=== PATIENT | male | born 1990 | race African-American/Black ===

== ENCOUNTER → 2021-09-22 | Outpatient (CLI) | payer BC ==
[2021-09-23 13:58] LABS: T4/T8 Ratio (CD4:CD8) 0.8 (1.0-3.7)
== END | disposition home or self-care (01) ==
LOC: LABWHC1 13:10
PROVIDERS: ATTEND Internal Medicine
DX: B20 Human immunodeficiency virus [HIV] disease (principal)
CPT/HCPCS: 36415; 86355; 86357; 86359; 86360; 87536

== ENCOUNTER → 2022-01-31 | Outpatient (CLI) | payer BC, OTHER ==
[2022-01-31 23:59] LABS: Basophils # (A) 0.04 X 10*3/uL (0.00-0.10); Basophils % (A) 0.8 %; Eosinophils # (A) 0.12 X 10*3/uL (0.04-0.35); Eosinophils % (A) 2.4 %; HCT 41.1 % (39.6-50.0); HGB 13.6 g/dL (13.0-17.0); Immature Grans, Automated 0.2 %; Lymphocytes # (A) 2.69 X 10*3/uL (0.90-5.00); Lymphocytes % (A) 53.3 %; MCH 30.8 pg (27.0-32.0); MCHC 33.1 g/dL (32.0-37.0); MCV 93.2 fL (80.0-97.0); Mean Platelet Volume 9.1 fL (9.5-12.2); Monocytes # (A) 0.39 X 10*3/uL (0.20-1.00); Monocytes % (A) 7.7 %; NRBC Per 100 WBC 0 /100 WBCS (0.0-0.0); Neutrophils % (A) 35.6 %; Platelet Count 411 X 10*3/uL (140-440); RBC 4.41 X 10*6/uL (4.40-5.60); RDW 12.6 % (11.5-14.5); Reticulocyte % 0.94 % (0.10-1.80); WBC 5.05 X 10*3/uL (4.50-10.00)
[2022-02-01 01:06] LABS: % Iron Saturation 15.85 (15.00-50.00); ALT 29 U/L (10-49); AST 28 U/L (14-35); African American GFR (CKD) 97.7 (60.0-200.0); Albumin 4.9 g/dL (3.8-4.9); Albumin/Globulin Ratio 1.73 (1.60-3.17); Alkaline Phosphatase 75 U/L (41-126); BUN/Creat Ratio 10.61 Ratio (12.00-20.00); Blood Urea Nitrogen 12.2 mg/dL (9.0-27.0); Calcium 9.9 mg/dL (8.7-10.3); Carbon Dioxide 25.1 mmol/L (20.0-27.5); Chloride 99 mmol/L (96-109); Chol/HDL Ratio 4.06 Ratio; Creatine Kinase 186 U/L (35-257); Globulin 2.8 g/dL (1.6-3.3); Glucose 80 mg/dL (70-110); Iron 66 ug/dL (65-175); LDL Cholesterol,Calculated 181.3 mg/dL (0.0-131.0); Non-African American GFR(CKD) 84.3 (60.0-200.0); Potassium 4.2 mmol/L (3.5-5.5); Sodium 138 mmol/L (135-145); Total Iron Binding Capacity 414 ug/dL (228-460); Total Protein 7.7 g/dL (6.2-8.2)
[2022-02-01 01:48] LABS: Progesterone 0.1 ng/mL
[2022-02-01 14:23] LABS: HIV-1 RNA Not detected (Not detected); HIV-1 RNA, Quant <40 Copies/mL (<40); LOG HIV Copies/mL <1.60 (<1.60)
== END | disposition home or self-care (01) ==
LOC: LABWHC1 14:24
PROVIDERS: ATTEND Psychiatry & Neurology Neurology
DX: Z00.01 Encounter for general adult medical examination with abnormal findings (principal); Z13.1 Encounter for screening for diabetes mellitus; Z51.81 Encounter for therapeutic drug level monitoring; B20 Human immunodeficiency virus [HIV] disease; R53.83 Other fatigue
CPT/HCPCS: 36415; 80053; 80061; 82306; 82533; 82550; 82607; 82626; 82746; 83036; 83540; 83550; 83605; 84144; 84207; 84402; 84403; 84425; 84439; 84443; 84466; 84591; 85025; 85045; 86355; 86357; 86359; 86360; 87536

== ENCOUNTER → 2022-03-29 | Outpatient (CLI) | payer BC, OTHER ==
[2022-03-30 12:44] LABS: T4/T8 Ratio (CD4:CD8) 0.9 (1.0-3.7)
[2022-03-30 15:09] LABS: HIV-1 RNA Not detected (Not detected); HIV-1 RNA, Quant <40 Copies/mL (<40); LOG HIV Copies/mL <1.60 (<1.60)
== END | disposition home or self-care (01) ==
LOC: LABWHC1 14:15
PROVIDERS: ATTEND Internal Medicine
DX: B20 Human immunodeficiency virus [HIV] disease (principal)
CPT/HCPCS: 36415; 86355; 86357; 86359; 86360; 87536

== ENCOUNTER 2022-05-12 11:53 | Day surgery (SDC) | payer BC, OTHER ==
[~2022-05-12 11:53] MED LIST: LACTATED RINGERS 1,000 ML IV SCH; LIDOCAINE 1% (10MG/ML) FOR IV START INTRADERMA PRN
[2022-05-12 12:22] VITALS: TEMP 97.9
[2022-05-12] MEDS ORDERED: LACTATED RINGERS 1,000 ML IV ONE (12:29)
[2022-05-12] MEDS ORDERED: PROPOFOL 10 MG/ML 20 ML VIAL IV ONE (13:20)
--- NOTE | 2022-05-12 13:37 | P.PCN ---
Date of Procedure: 05/12/22 Procedure(s) Performed: BRIEF HISTORY: Patient is a 31-year-old pleasant male scheduled for an elective colonoscopy as a part of evaluation of lower abdominal pain, change in bowel habits and intermittent rectal bleeding for the last several months duration. PROCEDURE PERFORMED: Colonoscopy. PREOPERATIVE DIAGNOSIS: Chronic constipation and change in bowel habits/intermittent rectal bleeding. IV sedation per Anesthesia. PROCEDURE: After informed consent was obtained, the patient, was brought into the endoscopy unit. IV sedation was administered by Anesthesia under continuous monitoring. Digital rectal examination was normal. Initially the Olympus CF-160 flexible video colonoscope was then inserted in the rectum, gradually advanced into the cecum without any difficulty. Careful examination was performed as the scope was gradually being withdrawn. Ileocecal valve and the appendiceal orifice were visualized and appeared normal. Prep was excellent. The mid ileum was intubated and 20 cm visualized and appeared normal. Mucosa of the cecum, ascending colon, transverse colon, descending colon, sigmoid colon, and rectum appeared normal. Retroflexion was performed in the rectum and small internal hemorrhoids were seen. The patient tolerated the procedure well. IMPRESSION: Normal-appearing colon from rectum to cecum with no evidence of colorectal neoplasia Normal appearing terminal ileum Small internal hemorrhoids. RECOMMENDATIONS: Findings of this examination were discussed with the patient as well as his family. He was advised to be on a high-fiber diet and take fiber supplements a regular basis..
[2022-05-12 13:46] VITALS: RESP 16
[2022-05-12 14:02] VITALS: BP 117/78; PULSE 65
== END 2022-05-12 14:15 | disposition home or self-care (01) ==
LOC: ORWHC2ENDO 11:53
PROVIDERS: ATTEND Internal Medicine Gastroenterology
DX: K64.8 Other hemorrhoids (principal); K62.5 Hemorrhage of anus and rectum; R19.4 Change in bowel habit; K59.09 Other constipation; B20 Human immunodeficiency virus [HIV] disease; F41.9 Anxiety disorder, unspecified; Z79.899 Other long term (current) drug therapy; Z91.011 Allergy to milk products
CPT/HCPCS: 45378; J2704

== ENCOUNTER → 2022-05-30 | Outpatient (CLI) | payer BC, OTHER ==
[2022-05-31 12:05] LABS: Natural Killer Cell (CD16/56) 73 cell/ul (60-500); Natural Killer Cell (CD16/56)% 3 % (3-24); T Helper Cell (CD4) 823 cell/ul (443-1471); T Helper Cell (CD4) % 35 % (35-66); T Suppressor Cell (CD8) 1146 cell/ul (190-832); T Suppressor Cell (CD8) % 49 % (9-37); T4/T8 Ratio (CD4:CD8) 0.7 (1.0-3.7); Total B Cell (CD19) 254 cell/ul (100-524); Total B Cell (CD19)% 11 % (4-25); Total T Cell (CD3) 1994 cell/ul (704-2138); Total T Cell (CD3)% 85 % (55-86)
[2022-05-31 14:54] LABS: HIV-1 RNA Not detected (Not detected)
== END | disposition home or self-care (01) ==
LOC: LABWHC1 07:22
PROVIDERS: ATTEND Internal Medicine
DX: B20 Human immunodeficiency virus [HIV] disease (principal)
CPT/HCPCS: 36415; 86355; 86357; 86359; 86360; 87535

== ENCOUNTER → 2022-08-30 | Outpatient (CLI) | payer BC, OTHER ==
[2022-08-30 22:56] LABS: HCT 38.6 % (39.6-50.0); MCH 30.2 pg (27.0-32.0); MCHC 33.7 g/dL (32.0-37.0); MCV 89.6 fL (80.0-97.0); Mean Platelet Volume 9.1 fL (9.5-12.2); NRBC Per 100 WBC 0 /100 WBCS (0.0-0.0); Platelet Count 360 X 10*3/uL (140-440); RBC 4.31 X 10*6/uL (4.40-5.60); RDW 12.6 % (11.5-14.5); WBC 4.73 X 10*3/uL (4.50-10.00)
[2022-08-30 23:37] LABS: African American GFR (CKD) 125.2 (60.0-200.0); Albumin 4.9 g/dL (3.8-4.9); Albumin/Globulin Ratio 1.74 (1.60-3.17); Anion Gap 11.4 mmol/L (10.00-18.00); BUN/Creat Ratio 13.34 Ratio (12.00-20.00); Blood Urea Nitrogen 12.5 mg/dL (9.0-27.0); Calcium 9.8 mg/dL (8.7-10.3); Carbon Dioxide 26.3 mmol/L (20.0-27.5); Globulin 2.8 g/dL (1.6-3.3); Luteinizing Hormone 4.6 mIU/mL; Potassium 4.2 mmol/L (3.5-5.5); Prolactin 18.5 ng/mL (2.100-17.700); Total Bilirubin 0.4 mg/dL (0.30-1.20); Total Protein 7.7 g/dL (6.2-8.2)
[2022-08-30 23:38] LABS: Prostate Specific Antigen 1.1 ng/mL (0.00-2.50)
== END | disposition home or self-care (01) ==
LOC: LABWHC1 14:42
PROVIDERS: ATTEND Internal Medicine Endocrinology, Diabetes & Metabolism
DX: E29.1 Testicular hypofunction (principal)
CPT/HCPCS: 36415; 80053; 83001; 83002; 84146; 84153; 84403; 85027

== ENCOUNTER 2022-10-19 17:19 | Emergency (ER) | payer BC, OTHER ==
[2022-10-19 17:23] VITALS: RESP 16; TEMP 98.1
[2022-10-19] MEDS ORDERED: LIDOCAINE 1% INJ 10MG/ML (30 ML VIAL-PF) SQ ONE (17:45)
[2022-10-19] MEDS ORDERED: AMOXIC-POT CLAV 875-125MG 1 EACH TAB PO STA (17:45)
[2022-10-19] MEDS ORDERED: BACITRACIN OINT 1 EACH PACKET TOPICAL ONE (17:45)
--- NOTE | 2022-10-19 17:53 | ED ---
General Adult HPI - General Chief complaint: Animal Bite Stated complaint: dog bite Time Seen by Provider: 10/19/22 17:25 Source: patient, family, RN notes reviewed Mode of arrival: ambulatory Limitations: no limitations - History of Present Illness Initial comments: 31-year-old male presents to the emergency department for evaluation of animal bite to the face, sustained approximately 1 hour prior to arrival. Patient states he was nipped by his dog while playing. States the dog is up-to-date on its immunizations. Patient reports his shots are up-to-date as well. Patient states he cleansed the wound prior to arrival. Reports minimal discomfort. Denies any periorbital pain, pain with eye movement, or decrease in vision. - Related Data Home Medications Medication Instructions Recorded Confirmed Bictegrav/Emtricit/Tenofov Ala 1 each PO DAILY 05/11/22 05/11/22 [Biktarvy 50-200-25 mg Tablet] DULoxetine HCL [Cymbalta] 30 mg PO DAILY 05/11/22 05/11/22 Docusate [Colace] 100 mg PO DAILY 05/11/22 05/11/22 Pravastatin Sodium [Pravachol] 20 mg PO HS 05/11/22 05/11/22 Previous Rx's Medication Instructions Recorded Amoxic-Pot Clav 875-125Mg 1 tab PO BID 10 Days #20 tab 10/19/22 [Augmentin 875-125] Allergies Allergy/AdvReac Type Severity Reaction Status Date / Time lactose Allergy gas,bloatin Verified 10/19/22 17:23 g,constipat ion Review of Systems ROS Statement: Those systems with pertinent positive or pertinent negative responses have been documented in the HPI. ROS Other: All systems not noted in ROS Statement are negative. Past Medical History Past Medical History: GERD/Reflux, Hyperlipidemia, Musculoskeletal Disorder Additional Past Medical History / Comment(s): HIV+, blood in stools recently, bloating, abd. pain, scoliosis History of Any Multi-Drug Resistant Organisms: None Reported Past Surgical History: No Surgical Hx Reported Additional Past Anesthesia/Blood Transfusion Reaction / Comment(s): no family problems w/anesthesia Past Psychological History: No Psychological Hx Reported Smoking Status: Never smoker Past Alcohol Use History: Occasional Past Drug Use History: None Reported General Exam Limitations: no limitations General appearance: alert, in no apparent distress Eye exam: Present: normal appearance, PERRL, EOMI. Absent: scleral icterus, conjunctival injection, periorbital swelling, periorbital tenderness Expanded Eyelids: Normal Inspection: Bilateral Pupils: Regular, Round: Bilateral Sclera/Conjunctival: Normal Inspection: Bilateral ENT exam: Present: normal oropharynx Respiratory exam: Present: normal lung sounds bilaterally. Absent: respiratory distress, wheezes, rales, rhonchi, stridor Cardiovascular Exam: Present: regular rate, normal rhythm, normal heart sounds. Absent: systolic murmur, diastolic murmur, rubs, gallop, clicks GI/Abdominal exam: Present: soft, normal bowel sounds. Absent: distended, tenderness, guarding, rebound, rigid Neurological exam: Present: alert, oriented X3 Psychiatric exam: Present: normal affect, normal mood Skin exam: Present: warm, dry, normal color Expanded Type of lesion: Present: laceration (0.5cm superficial laceration inferior to t he right eyebrow along the nasal border. 1 cm flap laceration superior to the right eyebrow. Scant amount of bleeding.) Course Vital Signs 10/19/22 10/19/22 10/19/22 17:20 18:20 19:36 Temperature 98.1 F Pulse Rate 111 H 68 80 Respiratory 16 16 16 Rate Blood Pressure 134/82 132/66 132/65 O2 Sat by Pulse 100 99 98 Oximetry Procedures - Laceration Laceration #1 Consent Obtained: verbal consent, written consent Indication: laceration Site: face (1cm flap laceration right eyebrow) Size (cm): 1 Description: flap Depth: simple, single layer Anesthetic Used: lidocaine 1% Anesthesia Technique: local infiltration Pre-repair: wound explored, irrigated extensively Type of Sutures: nylon Size of Sutures: 6-0 Number of Sutures: 2 Technique: simple, interrupted Patient Tolerated Procedure: well, no complications Additional Comments: Procedure explained and consent obtained. Wound was anesthetized with 1 mL of lidocaine with good anesthesia. Sterile drape and prep were done. Copious irrigation was done with saline and was splinted. There are no foreign body or deep structure injury noted. Wound edges were loosely approximated with good alignment using 2 simple interrupted sutures. Bacitracin applied to wound patient tolerated procedure well with no complications. He was instructed on the importance of wound care. Taking oral antibiotic, and careful monitoring for evidence of infection given the source of injury was animal bite. Laceration #2 Consent Obtained: verbal consent Indication: laceration (superficial 0.5cm laceration) Site: face (right orbital region, inferior to eyebrow ) Description: linear Depth: simple, single layer Anesthetic Used: lidocaine 1% Anesthesia Technique: local infiltration Amount (mls): 1 Pre-repair: wound explored, irrigated extensively Type of Sutures: nylon Size of Sutures: 6-0 Number of Sutures: 1 Technique: simple, interrupted Patient Tolerated Procedure: well, no complications Additional Comments: Procedure explained and consent obtained. Wound was anesthetized with 0.5 mL of lidocaine with good anesthesia. Sterile drape and prep were done. Copious irrigation was done with saline and was splinted. There are no foreign body or deep structure injury noted. Wound edges were loosely approximated with good alignment using 1 simple interrupted sutures. Bacitracin applied to wound patient tolerated procedure well with no complications. He was instructed on the importance of wound care, taking oral antibiotic, and careful monitoring for evidence of infection given the source of injury was animal bite. Medical Decision Making - Medical Decision Making This is a pleasant 31-year-old male who presents to the emergency department for evaluation of facial laceration sustained from a dog bite approximately one hour prior to arrival. Upon exam, patient is well-appearing and in no acute distress. Bleeding is controlled. TD up to date. Dog's shots up to date as well. 1.5 cm flap laceration superior to the right eyebrow and 0.5cm superficial laceration inferior to the eyebrow. Wounds thoroughly cleansed and irrigated. No evidence of foreign body. Two simple interrupted sutures were placed to loosely close the first laceration and 1 suture used to close the 2nd laceration. Bacitracin applied. Patient was given Augmentin. He is instructed on the importance of wound care. Encouraged to see PCP for wound recheck on Sunday. Instructed to have sutures removed in 3-5 days. Return parameters were discussed in detail. Patient verbalizes understanding and agrees with this plan. Attending: Mariela. Disposition Clinical Impression: Dog bite of face, Laceration Disposition: HOME SELF-CARE Condition: Stable Instructions (If sedation given, give patient instructions): Animal Bite (ED), Care For Your Stitches (ED), Facial Laceration (ED) Additional Instructions: Gently cleanse wound twice daily with mild soap and water. Apply antibiotic ointment. Take antibiotic as prescribed. You are being given a dose to take tomorrow morning. Please get RX filled as soon as possible. May take Tylenol or Motrin if needed for pain. It is important to monitor carefully for signs of infection including increased redness, pain, fever, or foul-smelling drainage from the wound. Sutures need to be removed in 3-5 days. Follow-up on Sunday for a wound recheck. Return to the emergency department with any new, worsening, or concerning symptoms. Prescriptions: Amoxic-Pot Clav 875-125Mg [Augmentin 875-125] 1 tab PO BID 10 Days #20 tab Is patient prescribed a controlled substance at d/c from ED?: No Referrals: Clint Pendleton MD [Primary Care Provider] - 1-2 days Time of Disposition: 19:07
[2022-10-19] MEDS ORDERED: AMOXIC-POT CLAV 875MG STARTER PACK 2 TAB BTL PO STA (19:07)
[2022-10-19 19:37] VITALS: BP 132/65; PULSE 80
== END 2022-10-19 19:37 | disposition home or self-care (01) ==
LOC: EC 17:19
DX: S01.85XA Open bite of other part of head, initial encounter (principal); S01.81XA Laceration without foreign body of other part of head, initial encounter; K21.9 Gastro-esophageal reflux disease without esophagitis; E78.5 Hyperlipidemia, unspecified; Z79.899 Other long term (current) drug therapy; Z91.011 Allergy to milk products; W54.0XXA Bitten by dog, initial encounter
CPT/HCPCS: 99283; J2001

== ENCOUNTER → 2022-10-23 | Outpatient (CLI) | payer BC, OTHER ==
[2022-10-23 15:10] LABS: Prolactin 19.4 ng/mL (2.100-17.700)
== END | disposition home or self-care (01) ==
LOC: LABWHC1 08:02
PROVIDERS: ATTEND Internal Medicine Endocrinology, Diabetes & Metabolism
DX: E29.1 Testicular hypofunction (principal)
CPT/HCPCS: 36415; 84146; 84403

== ENCOUNTER → 2023-07-11 | Outpatient (CLI) | payer BC, OTHER ==
[2023-07-11 14:58] LABS: Basophils # (A) 0.03 X 10*3/uL (0.00-0.10); Basophils % (A) 0.7 %; Eosinophils # (A) 0.06 X 10*3/uL (0.04-0.35); Eosinophils % (A) 1.4 %; HCT 42.7 % (39.6-50.0); HGB 13.9 d/dL (13.0-17.0); Immature Grans, Automated 0 %; Lymphocytes # (A) 2.25 X 10*3/uL (0.90-5.00); Lymphocytes % (A) 52.2 %; MCH 29.7 pg (27.0-32.0); MCHC 32.6 d/dL (32.0-37.0); MCV 91.2 FL (80.0-97.0); Monocytes # (A) 0.46 X 10*3/uL (0.20-1.00); Monocytes % (A) 10.7 %; NRBC Per 100 WBC 0 X 10*3/uL (0.00-0.01); Neutrophils # (A) 1.51 X 10*3/uL (1.80-7.70); Platelet Count 460 X 10*3/uL (140-440); RBC 4.68 X 10*6/uL (4.40-5.60); WBC 4.31 X 10*3/uL (4.50-10.00)
[2023-07-11 16:15] LABS: ALT 38 U/L (10-49); AST 36 U/L (14-35); Albumin 4.8 d/dL (3.8-4.9); Albumin/Globulin Ratio 1.66 Ratio (1.60-3.17); Alkaline Phosphatase 75 U/L (41-126); Blood Urea Nitrogen 12.4 mg/dL (9.0-27.0); Calcium 10.1 mg/dL (8.7-10.3); Carbon Dioxide 25.1 mmol/L (21.6-31.8); Chloride 105 mmol/L (96-109); Globulin 2.9 d/dL (1.6-3.3); Glucose 78 mg/dL (70-110); Potassium 4.8 mmol/L (3.5-5.5); Sodium 141 mmol/L (135-145); Total Bilirubin 0.2 mg/dL (0.3-1.2); Total Protein 7.7 d/dL (6.2-8.2)
[2023-07-12 12:05] LABS: T4/T8 Ratio (CD4:CD8) 0.7 (1.0-3.7)
[2023-07-12 14:11] LABS: HIV-1 RNA DETECTED (Not detected); HIV-1 RNA, Quant <20 Copies/mL (<20); LOG HIV Copies/mL <1.30 (<1.30)
== END | disposition home or self-care (01) ==
LOC: LABWHC1 08:33
PROVIDERS: ATTEND Internal Medicine Infectious Disease
DX: B20 Human immunodeficiency virus [HIV] disease (principal)
CPT/HCPCS: 36415; 80053; 85025; 86360; 87536

== ENCOUNTER → 2023-09-20 | Outpatient (CLI) | payer BC, OTHER ==
[2023-09-20 16:42] LABS: ALT 27 U/L (10-49); AST 31 U/L (14-35); Albumin 4.5 d/dL (3.8-4.9); Albumin/Globulin Ratio 1.61 Ratio (1.60-3.17); Alkaline Phosphatase 72 U/L (41-126); BUN/Creat Ratio 11.18 Ratio (12.00-20.00); Blood Urea Nitrogen 12.3 mg/dL (9.0-27.0); Calcium 9.8 mg/dL (8.7-10.3); Carbon Dioxide 22.9 mmol/L (21.6-31.8); Chloride 101 mmol/L (96-109); Globulin 2.8 d/dL (1.6-3.3); Glucose 89 mg/dL (70-110); Potassium 4.5 mmol/L (3.5-5.5); Sodium 138 mmol/L (135-145); Total Bilirubin 0.3 mg/dL (0.3-1.2); Total Protein 7.3 d/dL (6.2-8.2)
[2023-09-20 16:54] LABS: Basophils # (A) 0.03 X 10*3/uL (0.00-0.10); Basophils % (A) 0.7 %; Eosinophils % (A) 2.2 %; HCT 39.2 % (39.6-50.0); Lymphocytes # (A) 2.19 X 10*3/uL (0.90-5.00); Lymphocytes % (A) 48.6 %; MCH 29.6 pg (27.0-32.0); MCHC 33.2 d/dL (32.0-37.0); MCV 89.3 FL (80.0-97.0); Monocytes # (A) 0.48 X 10*3/uL (0.20-1.00); Monocytes % (A) 10.6 %; NRBC Per 100 WBC 0 X 10*3/uL (0.00-0.01); Neutrophils % (A) 37.7 %; Platelet Count 397 X 10*3/uL (140-440); RBC 4.39 X 10*6/uL (4.40-5.60); RDW 12.5 % (11.5-14.5); WBC 4.51 X 10*3/uL (4.50-10.00)
[2023-09-21 11:23] LABS: T4/T8 Ratio (CD4:CD8) 0.7 (1.0-3.7)
[2023-09-21 14:17] LABS: HIV-1 RNA Not detected (Not detected); HIV-1 RNA, Quant <20 Copies/mL (<20); LOG HIV Copies/mL <1.30 (<1.30)
== END | disposition home or self-care (01) ==
LOC: LABWHC1 08:45
PROVIDERS: ATTEND Internal Medicine Infectious Disease
DX: B20 Human immunodeficiency virus [HIV] disease (principal)
CPT/HCPCS: 36415; 80053; 85025; 86360; 87536

== ENCOUNTER → 2024-04-15 | Outpatient (CLI) | payer BC, OTHER ==
[2024-04-15 15:37] LABS: Basophils # (A) 0.04 X 10*3/uL (0.00-0.10); Eosinophils # (A) 0.08 X 10*3/uL (0.04-0.35); Eosinophils % (A) 1.9 %; HCT 42.1 % (39.6-50.0); HGB 13.7 g/dL (13.0-17.0); Lymphocytes # (A) 1.94 X 10*3/uL (0.90-5.00); Lymphocytes % (A) 46.3 %; MCH 29.2 pg (27.0-32.0); MCHC 32.5 g/dL (32.0-37.0); MCV 89.8 FL (80.0-97.0); Mean Platelet Volume 8.9 FL (9.5-12.2); Monocytes # (A) 0.42 X 10*3/uL (0.20-1.00); NRBC Per 100 WBC 0 X 10*3/uL (0.00-0.01); Neutrophils % (A) 40.6 %; Platelet Count 431 X 10*3/uL (140-440); RBC 4.69 X 10*6/uL (4.40-5.60); RDW 13.4 % (11.5-14.5); WBC 4.19 X 10*3/uL (4.50-10.00)
[2024-04-15 16:04] LABS: ALT 41 U/L (10-49); AST 32 U/L (14-35); Albumin 4.7 g/dL (3.8-4.9); Albumin/Globulin Ratio 1.52 Ratio (1.60-3.17); Alkaline Phosphatase 82 U/L (41-126); BUN/Creat Ratio 13.08 Ratio (12.00-20.00); Blood Urea Nitrogen 15.7 mg/dL (9.0-27.0); Calcium 9.9 mg/dL (8.7-10.3); Carbon Dioxide 25.6 mmol/L (21.6-31.8); Chloride 104 mmol/L (96-109); Globulin 3.1 g/dL (1.6-3.3); Glucose 101 mg/dL (70-110); Potassium 4.6 mmol/L (3.5-5.5); Sodium 138 mmol/L (135-145); Total Bilirubin 0.2 mg/dL (0.3-1.2); Total Protein 7.8 g/dL (6.2-8.2)
[2024-04-16 09:01] LABS: T4/T8 Ratio (CD4:CD8) 0.7 (1.0-3.7)
[2024-04-16 13:36] LABS: HIV-1 RNA Not detected (Not detected); HIV-1 RNA, Quant <20 Copies/mL (<20); LOG HIV Copies/mL <1.30 (<1.30)
== END | disposition home or self-care (01) ==
LOC: LABWHC1 08:05
PROVIDERS: ATTEND Internal Medicine Infectious Disease
DX: B20 Human immunodeficiency virus [HIV] disease (principal)
CPT/HCPCS: 36415; 80053; 85025; 86360; 87536

== ENCOUNTER → 2024-08-26 | Outpatient (CLI) | payer BC ==
--- NOTE | 2024-08-26 22:30 | MR ---
EXAMINATION TYPE: MR lumbar spine wo con DATE OF EXAM: 08/26/2024 COMPARISON: None HISTORY: Lower back pain, scoliosis. CONTRAST: 0 mL intravenous Gadavist. TECHNIQUE: Multiplanar, multisequence images of the lumbar spine were acquired. FINDINGS: L5-S1: No significant disc bulge or disc herniation. No spinal canal stenosis. No foraminal stenosi s. L4-L5: No significant disc bulge or disc herniation. No spinal canal stenosis. No foraminal stenosi s. L3-L4: No significant disc bulge or disc herniation. No spinal canal stenosis. No foraminal stenosi s. L2-L3: No significant disc bulge or disc herniation. No spinal canal stenosis. No foraminal stenosi s. L1-L2: No significant disc bulge or disc herniation. No spinal canal stenosis. No foraminal stenosi s. T12-L1: No significant disc bulge or disc herniation. No spinal canal stenosis. No foraminal stenos is. There is normal hydration of the discs. Disc heights are preserved. Vertebral body heights are preser pratibha. Alignment is normal. No spondylolisthesis is evident. The cord terminates at L1. No obvious scol iosis evident. IMPRESSION: 1. No acute abnormality MRI lumbar spine [facility], Workstation: [facility], 08/26/2024 10:28 PM
== END | disposition home or self-care (01) ==
LOC: RADMRIMAIN 16:53
PROVIDERS: ATTEND Family Medicine
DX: M54.50 Low back pain, unspecified (principal)
CPT/HCPCS: 72148

== ENCOUNTER → 2024-09-25 | Outpatient (CLI) | payer BC ==
[2024-09-25 17:03] LABS: Basophils % (A) 1 %; Eosinophils # (A) 0.1 k/uL (0-0.7); Eosinophils % (A) 2 %; HCT 40.8 % (39.0-53.0); HGB 13.3 gm/dL (13.0-17.5); Lymphocytes # (A) 2.8 k/uL (1.0-4.8); Lymphocytes % (A) 56 %; MCH 29.7 pg (25.0-35.0); MCHC 32.5 g/dL (31.0-37.0); MCV 91.1 fL (80.0-100.0); Mean Platelet Volume 6.6; Monocytes # (A) 0.3 k/uL (0-1.0); Monocytes % (A) 7 %; Neutrophils # (A) 1.7 k/uL (1.3-7.7); Neutrophils % (A) 33 %; Platelet Count 409 k/uL (150-450); RBC 4.47 m/uL (4.30-5.90); RDW 14.3 % (11.5-15.5)
[2024-09-25 17:17] LABS: ALT 53 U/L (4-49); AST 52 U/L (17-59); African American GFR (CKD) >90 (>60 ml/min/1.73 sqM); Alkaline Phosphatase 64 U/L (38-126); Anion Gap 9 mmol/L; Blood Urea Nitrogen 15 mg/dL (9-20); Calcium 9.7 mg/dL (8.4-10.2); Carbon Dioxide 29 mmol/L (22-30); Chloride 101 mmol/L (98-107); Glucose 84 mg/dL (74-99); Non-African American GFR(CKD) >90 (>60 ml/min/1.73 sqM); Potassium 4.3 mmol/L (3.5-5.1); Sodium 139 mmol/L (137-145); Total Bilirubin 0.4 mg/dL (0.2-1.3); Total Protein 8.5 g/dL (6.3-8.2)
[2024-09-26 12:31] LABS: T Helper Cell (CD4) 1188 cell/ul (443-1471); T Helper Cell (CD4) % 37 % (35-66); T Suppressor Cell (CD8) 1424 cell/ul (190-832); T Suppressor Cell (CD8) % 44 % (9-37); T4/T8 Ratio (CD4:CD8) 0.8 (1.0-3.7)
[2024-10-01 16:38] LABS: Albumin, LC/MS/MS 4.7 g/dL (3.6-5.1); Testosterone, Free, LC/MS/MS 44.6 pg/mL (46.0-224.0); Testosterone, Total, LC/MS/MS 250 ng/dL (250-1100)
[2024-10-01 18:47] LABS: HIV-1 RNA DETECTED (Not detected)
== END | disposition home or self-care (01) ==
LOC: LABT 15:42
PROVIDERS: ATTEND Family Medicine
DX: B20 Human immunodeficiency virus [HIV] disease (principal); E29.1 Testicular hypofunction
CPT/HCPCS: 80053; 82040; 84270; 84403; 85025; 86360; 87535

== ENCOUNTER → 2024-10-06 | Outpatient (CLI) | payer BC ==
[2024-10-07 02:57] LABS: Basophils # (A) 0.05 X 10*3/uL (0.00-0.10); Eosinophils # (A) 0.06 X 10*3/uL (0.04-0.35); Eosinophils % (A) 1.2 %; HGB 12.9 g/dL (13.0-17.0); Lymphocytes # (A) 2.78 X 10*3/uL (0.90-5.00); Lymphocytes % (A) 57.6 %; MCH 29.6 pg (27.0-32.0); MCHC 33.1 g/dL (32.0-37.0); MCV 89.4 FL (80.0-97.0); Mean Platelet Volume 9.2 FL (9.5-12.2); Monocytes # (A) 0.51 X 10*3/uL (0.20-1.00); Monocytes % (A) 10.6 %; NRBC Per 100 WBC 0 X 10*3/uL (0.00-0.01); Neutrophils # (A) 1.42 X 10*3/uL (1.80-7.70); Neutrophils % (A) 29.4 %; Platelet Count 391 X 10*3/uL (140-440); RBC 4.36 X 10*6/uL (4.40-5.60); WBC 4.83 X 10*3/uL (4.50-10.00)
[2024-10-07 03:20] LABS: ALT 39 U/L (10-49); AST 35 U/L (14-35); Albumin 4.6 g/dL (3.8-4.9); Albumin/Globulin Ratio 1.64 Ratio (1.60-3.17); Alkaline Phosphatase 74 U/L (41-126); BUN/Creat Ratio 12.85 Ratio (12.00-20.00); Blood Urea Nitrogen 16.7 mg/dL (9.0-27.0); Calcium 9.6 mg/dL (8.7-10.3); Chloride 102 mmol/L (96-109); Globulin 2.8 g/dL (1.6-3.3); Glucose 83 mg/dL (70-110); Sodium 138 mmol/L (135-145); Total Bilirubin 0.4 mg/dL (0.3-1.2); Total Protein 7.4 g/dL (6.2-8.2)
[2024-10-07 11:56] LABS: HIV-1 RNA Not detected (Not detected); HIV-1 RNA, Quant <20 Copies/mL (<20); LOG HIV Copies/mL <1.30 (<1.30)
[2024-10-07 13:39] LABS: T4/T8 Ratio (CD4:CD8) 0.9 (1.0-3.7)
== END | disposition home or self-care (01) ==
LOC: LABWHC1 16:18
PROVIDERS: ATTEND Internal Medicine Infectious Disease
DX: B20 Human immunodeficiency virus [HIV] disease (principal)
CPT/HCPCS: 36415; 80053; 85025; 86360; 87536

== ENCOUNTER → 2025-02-17 | Outpatient (CLI) | payer BC ==
[2025-02-17 18:24] LABS: Luteinizing Hormone 6.2 mIU/mL; Prolactin 12.3 ng/mL (2.100-17.000)
== END | disposition home or self-care (01) ==
LOC: LABWHC1 08:37
PROVIDERS: ATTEND Internal Medicine Endocrinology, Diabetes & Metabolism
DX: E29.9 Testicular dysfunction, unspecified (principal)
CPT/HCPCS: 36415; 83001; 83002; 84146; 84270; 84305; 84402; 84403